=== PATIENT | male | born 1950 | race Two or more races ===

== ENCOUNTER 2016-07-17 14:17 | Emergency (ER) | payer MEDICARE, MEDICAID ==
[~2016-07-17] VITALS: Ht 177.8 cm; Wt 90.7 kg
[2016-07-17 14:21] VITALS: BP 114/76
--- NOTE | 2016-07-17 14:25 | NUR ---
PT BIB [facility] FOR ETOH INTOX. EASILY AROUSABLE. ABLE TO FOLLOW COMMANDS. DENIES PHYSICAL COMPLAINT. NAD NOTED. IN ER BED 15.
--- NOTE | 2016-07-17 15:36 | NUR ---
PT AMBULATED WITH UNSTEADY GAIT. ASSISTED BACK TO ER BED 15. IV FROM RA removed. Catheter intact and site benign. Pressure and 4x4 applied to site. No bleeding noted.
[2016-07-17 16:37] LABS: BASOPHILS % (AUTO) 0.5 % (0.0-2.0); EOSINOPHILS % (AUTO) 0.5 % (0.0-6.0); HEMATOCRIT 40 % (39-51); HEMOGLOBIN 13.6 g/dL (13.5-17.5); LYMPHOCYTES # (AUTO) 1.2 /CMM (0.8-4.8); MEAN CORPUSCULAR HEMOGLOBIN 32 PG (26.0-33.0); MEAN CORPUSCULAR HGB CONC 34 g/dl (31.0-36.0); MEAN CORPUSCULAR VOLUME 94 fL (80-96); MONOCYTES # (AUTO) 0.2 /CMM (0.1-1.30); MONOCYTES % (AUTO) 5.3 % (2.0-12.0); NEUTROPHILS # (AUTO) 3.1 /CMM (1.8-8.9); NEUTROPHILS % (AUTO) 67.7 % (43.0-81.0); PLATELET COUNT (AUTO) 92 /CMM (150-450); RDW COEFFICIENT OF VARIATION 12.7 (11.5-15.0); RED BLOOD CELL COUNT(AUTO) 4.27 MIL/uL (4.5-6.0); WHITE BLOOD COUNT (AUTO) 4.5 K/uL (4.3-11.0)
[2016-07-17 16:45] LABS: CALCIUM, SERUM 8.1 mg/dL (8.5-10.1); CREATININE 0.7 mg/dL (0.6-1.3); POTASSIUM 2.9 mmol/L (3.5-5.1)
[2016-07-17 16:55] LABS: ALBUMIN 2.6 g/dL (3.4-5.0); BILIRUBIN,DIRECT 0.4 mg/dL (0.0-0.2); BILIRUBIN,TOTAL 0.6 mg/dL (0.2-1.0); TOTAL PROTEIN, SERUM 7.7 g/dL (6.4-8.2)
--- NOTE | 2016-07-17 17:02 | NUR ---
PT ELOPED FROM FACILITY; WAS SEEN ROLLING SELF OUT IN WHEELCHAIR.
[2016-07-17 18:53] LABS: BAND % (MANUAL) 1 % (0.0-5.0); EOSINOPHILS % (MANUAL) 1 % (0-4); LYMPHOCYTES % (MANUAL) 38 % (16-48); MONOCYTES % (MANUAL) 6 % (0-11.0); NEUTROPHILS % (MANUAL) 53 (42-76); REACTIVE LYMPHOCYTES 1 % (0-0)
[2016-07-17 18:54] LABS: ANISOCYTOSIS 1+; PLATELET ESTIMATE DECREASED
== END 2016-07-17 17:03 | disposition left against medical advice (07) ==
LOC: ER 14:18
DX: F10.129 Alcohol abuse with intoxication, unspecified (principal)
CPT/HCPCS: 36415; 80048; 80076; 85025; 99284; A4606; G0480; Z7610